=== PATIENT | male | born 1930 | race Caucasian/White ===

== ENCOUNTER → 2016-11-14 | Outpatient (CLI) | payer OTHER | LOC: PCVCCLINIC 14:00 | PROVIDERS: ATTEND Internal Medicine Cardiovascular Disease | DX: E78.5 Hyperlipidemia, unspecified (principal); I25.10 Atherosclerotic heart disease of native coronary artery without angina pectoris; G47.33 Obstructive sleep apnea (adult) (pediatric); J44.9 Chronic obstructive pulmonary disease, unspecified; I48.0 Paroxysmal atrial fibrillation; M54.9 Dorsalgia, unspecified; I65.29 Occlusion and stenosis of unspecified carotid artery; Z95.1 Presence of aortocoronary bypass graft | CPT/HCPCS: 80061; 93005; G0463 ==

== ENCOUNTER → 2017-05-16 | Outpatient (CLI) | payer OTHER | LOC: PCVCCLINIC 14:30 | PROVIDERS: ATTEND Nuclear Medicine Nuclear Cardiology | DX: I73.9 Peripheral vascular disease, unspecified (principal); I25.10 Atherosclerotic heart disease of native coronary artery without angina pectoris; I77.9 Disorder of arteries and arterioles, unspecified; I10 Essential (primary) hypertension; E78.00 Pure hypercholesterolemia, unspecified; I48.0 Paroxysmal atrial fibrillation; J42 Unspecified chronic bronchitis; E11.9 Type 2 diabetes mellitus without complications; Z79.82 Long term (current) use of aspirin; Z79.899 Other long term (current) drug therapy | CPT/HCPCS: G0463 ==

== ENCOUNTER → 2017-05-22 | Outpatient (CLI) | payer OTHER ==
[~2017-05-22] MED LIST: ASPIRIN 325 MG TABLET ONE; CLOPIDOGREL BISULFATE 75 MG TABLET ONE; DIAZEPAM 10 MG TABLET. ONE; HEPARIN SODIUM 5,000 UNIT/ML VIAL for PCVC. ONE; IODIXANOL 270 MG/ML 100 ML VIAL. ONE; IV NORMAL SALINE 1000ML BAG 1,000 ML ONE; IV NORMAL SALINE 500ML BAG 0 ML ONE; LIDOCAINE 1% Multi-Dose 20 ML VIAL. ONE; MIDAZOLAM HCL/PF 2 MG/2 ML VIAL. ONE; fentaNYL PF VIAL 100 MCG/2 ML VIAL ONE; hydrALAZINE 20 MG/ML VIAL. ONE
--- NOTE | 2017-05-22 16:11 | PCVCINTER ---
EXAM: 1. AORTOGRAM AND BILATERAL LOWER EXTREMITY RUNOFF ANGIOGRAM 2. BILATERAL RENAL ANGIOGRAPHY 3. RIGHT COMMON ILIAC ARTERY STENT PLACEMENT. 4. RIGHT EXTERNAL ILIAC ARTERY STENT PLACEMENT 5. LEFT COMMON ILIAC ARTERY STENT PLACEMENT. 6. LEFT EXTERNAL ILIAC ARTERY STENT PLACEMENT. INDICATION: Peripheral arterial disease. Coronary artery disease. Lifestyle limiting claudication. Hypertension. Renal atherosclerosis. PROCEDURE: Procedure and risks of angiography intervention is appropriate including limb loss stroke and were discussed with the patient's family and consent obtained. The patient's left groin was prepped abnormal sterile fashion. IV conscious sedation was used to procedure with appropriate monitoring for 90 minutes. Ultrasound was used to interrogate the left groin and showed the left common femoral artery to be patent. A permanent spot film was obtained. Under ultrasound guidance access into the left common femoral artery was obtained and a 5 [place] sheath was placed. Through this a 5 [place] flush catheter was placed into the abdominal aorta at the level of the renal arteries and AP aortogram was performed. Catheter was positioned at the aortic bifurcation and both oblique views of the pelvis were obtained. Catheter was positioned into the left external iliac artery and left leg runoff angiography was performed. Catheter was exchanged for a visceral catheter was placed into the right renal arteries and right renal angiograms obtained. Catheter was placed into the the left renal arteries and left renal angiograms were obtained. Catheter was advanced to the level of the right external iliac artery and right leg runoff angiography was obtained. Patient was given 4500 units of heparin. A 6 [place] crossover sheath was placed via the left groin to the level of the right common femoral artery. Stent placement across the areas of high-grade stenosis in the right external iliac artery was carried out with a 8 x 80 Smart control stent with subsequent dilatation to 7.0 mm. Stent placement across the areas of high-grade stenosis in the right common iliac artery was carried out with a 8 x 60 Smart control stent and 7 x 39 [place]maz Miriam stent with subsequent dilatation to 8.0 mm. Stent placement across the areas of high-grade stenosis in the left common iliac artery was carried out with a 14 x 40 Smart control stent with subsequent dilatation to 9.0 mm. Stent placement across the areas of high-grade stenosis in the left external iliac artery was carried out with a 8 x 40 Smart control stent with subsequent dilatation to 8.0 mm. Follow-up angiogram was performed. Catheters and wires removed. Sheath was removed and hemostasis obtained using the Exoseal device. No immediate complications. FINDINGS: Aortogram: There is one right and one left renal artery. Moderately advanced calcific plaque in the infrarenal abdominal aorta does not cause significant stenosis. Pelvis: Extensive irregular plaque proximal common iliac artery results in subtotal occlusion. Large exophytic plaques in the lower right common iliac and throughout the right proximal and mid external iliac artery results in areas of high-grade stenosis. Moderate plaque proximal left common iliac artery causes moderate stenosis. Focal 80% stenosis in the lower common iliac artery on the left. Area of dissection high-grade stenosis upper left external iliac artery. Right renal artery: Moderate plaque proximal vessel causes minimal stenosis. No branch vessel stenosis. Left renal artery: Extensive plaque proximal vessel results in 50% stenosis not felt to be flow-limiting. No branch vessel stenosis. Right leg: At the junction of the external and common femoral artery is in 80% stenosis caused by a large plaque. Large exophytic plaque distal common femoral artery results in 95% stenosis. The profunda femoral artery is occluded at its origin. The superficial femoral artery show scattered plaque without high-grade stenosis. Exophytic plaque upper popliteal artery results in 75% stenosis. The anterior tibial, peroneal, and posterior tibial arteries all show good patency. Left leg: The common femoral and profunda femoral arteries are patent. The superficial femoral artery shows mild plaque throughout without significant stenosis. Eccentric plaque at the junction of the superficial femoral artery and popliteal artery results in 75% stenosis. Popliteal artery otherwise patent. The anterior tibial artery becomes diminutive in size distally. The posterior tibial and peroneal arteries show good patency throughout. Right common iliac artery: Following stent placement vessel shows good patency without significant residual stenosis. Right external iliac artery: Following stent placement vessel shows satisfactory patency without significant residual stenosis. Left common iliac artery: Following stent placement vessel shows good patency without significant stenosis. Left external iliac artery stent placement: Following stent placement vessel shows good patency without significant stenosis. IMPRESSION: Subtotal occlusion right common iliac artery and high-grade stenoses in the right external iliac, left common iliac, and left external iliac arteries were treated with stent placements with good patency restored. 75% stenosis in the upper right and left popliteal arteries. Large exophytic plaque results in 80% stenosis at the junction of the right external iliac/right common femoral artery and 95% stenosis in the lower right common femoral artery. Occlusion of the right profunda femoral artery. Patient will have a follow-up appointment with Dr. Jacobson to arrange for right common femoral artery endarterectomy. LOC:[id number]
== END | disposition home or self-care (01) ==
LOC: PCVCINTER 07:26
PROVIDERS: ATTEND Nuclear Medicine Nuclear Cardiology
DX: I70.213 Atherosclerosis of native arteries of extremities with intermittent claudication, bilateral legs (principal); I25.10 Atherosclerotic heart disease of native coronary artery without angina pectoris; I10 Essential (primary) hypertension; I70.1 Atherosclerosis of renal artery
CPT/HCPCS: 36252; 37221; 37223; 75716; 76937; 99152; 99153; C1725; C1751; C1760; C1769; C1876; C1894; J0360; J0690; J1644; J2250; J3010; J7030; Q9966; J7040

== ENCOUNTER → 2017-06-11 | Outpatient (CLI) | payer OTHER ==
--- NOTE | 2017-06-11 13:08 | PCVCIMAG ---
EXAM: NONINVASIVE ARTERIAL EXAMINATION OF BOTH LOWER EXTREMITIES INCLUDING PRE AND POST EXERCISE PRESSURE MEASUREMENTS AND DOPPLER WAVEFORMS INDICATION: Peripheral Arterial Disease. Leg pain. FINDINGS: Right Brachial: 138 mm Hg. Right Dorsalis Pedis: 105 mm Hg. Right Posterior Tibial: 87 mm Hg. Right PERNELL = 0.74. Left Brachial: 141 mm Hg. Left Dorsalis Pedis: 150 mm Hg. Left Posterior Tibial: 156 mm Hg. Left PERNELL = 1.11. Post Exercise: Left Brachial 141 mm Hg. Right Dorsalis Pedis: 75 mm Hg. Left Posterior Tibial: 167 mm Hg. Right PERNELL = 0.53. Left PERNELL = 1.18. IMPRESSION: Mild/moderate resting ischemia in the right lower extremity. Moderate exercise induced ischemia in the right lower extremity. No resting ischemia in the left lower extremity. No exercise induced ischemia in the left lower extremity. LOC:[id number]
== END | disposition home or self-care (01) ==
LOC: PCVCIMAG 10:31
PROVIDERS: ATTEND Internal Medicine Cardiovascular Disease
DX: I99.8 Other disorder of circulatory system (principal); I73.9 Peripheral vascular disease, unspecified; E11.9 Type 2 diabetes mellitus without complications; E78.00 Pure hypercholesterolemia, unspecified
CPT/HCPCS: 93923; 93924

== ENCOUNTER → 2017-07-11 | Outpatient (CLI) | payer OTHER ==
--- NOTE | 2017-07-11 17:50 | PCVCIMAG ---
EXAM: DUPLEX ULTRASOUND OF THE RIGHT GROIN INDICATION: Groin swelling and pain. Prior catheterization May 22, 2017. FINDINGS: No pseudoaneurysm is present. The common femoral artery and vein are patent. No arteriovenous fistula is seen. IMPRESSION: Study is negative for pseudoaneurysm. Note is made of a 2.2 x 4.4 x 5.1 cm subcutaneous hematoma and a second 2.4 x 3.1 x 4.8 cm subcutaneous hematoma in the right groin. Both of these are predominantly cystic in nature. LOC:[id number]
== END | disposition home or self-care (01) ==
LOC: PCVCIMAG 13:17
PROVIDERS: ATTEND Nuclear Medicine Nuclear Cardiology
DX: R19.09 Other intra-abdominal and pelvic swelling, mass and lump (principal); I10 Essential (primary) hypertension; I25.10 Atherosclerotic heart disease of native coronary artery without angina pectoris; E78.00 Pure hypercholesterolemia, unspecified; Z98.890 Other specified postprocedural states
CPT/HCPCS: 93926

== ENCOUNTER → 2017-08-28 | Outpatient (CLI) | payer OTHER ==
--- NOTE | 2017-08-28 11:40 | PCVCIMAG ---
EXAM: BILATERAL CAROTID DUPLEX INDICATION: Carotid Occlusive Disease. FINDINGS: Doppler Measurements (centimeters per second): RIGHT: Peak CCA-59, Peak ECA-72, Diastolic ICA-19, Peak ICA-103, ICA/CCA Ratio-1.7. LEFT: Peak CCA-79, Peak ECA-131, Diastolic ICA-15, Peak ICA-84, ICA/CCA Ratio-1.1. RIGHT CAROTID: The carotid bulb has moderate plaque. The proximal internal carotid artery shows <40% stenosis. The common carotid artery shows no significant stenosis. The external carotid artery shows no significant stenosis. LEFT CAROTID: The carotid bulb has moderate plaque. The proximal internal carotid artery shows <40% stenosis. The common carotid artery shows no significant stenosis. The external carotid artery shows 40% stenosis. Antegrade flow in both vertebral arteries. IMPRESSION: <40% stenosis of the right internal carotid artery with moderate plaque. <40% stenosis of the left internal carotid artery with moderate plaque. LOC:[id number]
--- NOTE | 2017-08-28 11:42 | PCVCIMAG ---
EXAM: NONINVASIVE ARTERIAL EXAMINATION OF BOTH LOWER EXTREMITIES INCLUDING PRE AND POST EXERCISE PRESSURE MEASUREMENTS AND DOPPLER WAVEFORMS INDICATION: Peripheral Arterial Disease. Leg pain. FINDINGS: Right Brachial: 137 mm Hg. Right Dorsalis Pedis: 149 mm Hg. Right Posterior Tibial: 206 mm Hg. Right PERNELL = 1.03. Left Brachial: 145 mm Hg. Left Dorsalis Pedis: 144 mm Hg. Left Posterior Tibial: 151 mm Hg. Left PERNELL = 1.04. Post Exercise: Left Brachial 170 mm Hg. Right Posterior Tibial: 155 mm Hg. Left Posterior Tibial: 170 mm Hg. Right PERNELL = 0.91. Left PERNELL = 1.00. IMPRESSION: No resting ischemia in the right lower extremity. No exercise induced ischemia in the right lower extremity. No resting ischemia in the left lower extremity. No exercise induced ischemia in the left lower extremity. LOC:[id number]
--- NOTE | 2017-08-28 11:47 | PCVCIMAG ---
EXAM: AORTOILIAC DUPLEX INDICATION: Peripheral arterial disease FINDINGS: AORTA: Suprarenal aorta measures maximum diameter of 2.6 cm. There is not a fusiform infrarenal aortic aneurysm. The infrarenal aorta measures maximum diameter of 2.5 cm. No aortic stenosis. RIGHT COMMON ILIAC ARTERY: Maximum diameter is 0.9 cm. No significant stenosis. RIGHT EXTERNAL ILIAC ARTERY: No significant stenosis. LEFT COMMON ILIAC ARTERY: Maximum diameter is 1.0 cm. 50-60% LEFT EXTERNAL ILIAC ARTERY: No significant stenosis. IMPRESSION: No abdominal aortic aneurysm. No right iliac stenosis seen. 50-60% stenosis left common iliac artery not felt to be flow-limiting. LOC:[id number]
== END | disposition home or self-care (01) ==
LOC: PCVCIMAG 09:31
PROVIDERS: ATTEND Nuclear Medicine Nuclear Cardiology
DX: I65.23 Occlusion and stenosis of bilateral carotid arteries (principal); I70.202 Unspecified atherosclerosis of native arteries of extremities, left leg; I25.10 Atherosclerotic heart disease of native coronary artery without angina pectoris; I10 Essential (primary) hypertension; E78.00 Pure hypercholesterolemia, unspecified; E11.9 Type 2 diabetes mellitus without complications; I48.0 Paroxysmal atrial fibrillation; Z95.828 Presence of other vascular implants and grafts; Z79.82 Long term (current) use of aspirin
CPT/HCPCS: 93880; 93923; 93978; 93924

== ENCOUNTER → 2017-08-30 | Outpatient (CLI) | payer OTHER | END | disposition home or self-care (01) | LOC: PCVCCLINIC 15:10 | PROVIDERS: ATTEND Nuclear Medicine Nuclear Cardiology | DX: I25.10 Atherosclerotic heart disease of native coronary artery without angina pectoris (principal); I73.9 Peripheral vascular disease, unspecified; I77.9 Disorder of arteries and arterioles, unspecified; I10 Essential (primary) hypertension; I48.0 Paroxysmal atrial fibrillation; E78.00 Pure hypercholesterolemia, unspecified; E11.9 Type 2 diabetes mellitus without complications; Z87.891 Personal history of nicotine dependence; Z79.82 Long term (current) use of aspirin; Z79.899 Other long term (current) drug therapy | CPT/HCPCS: G0463 ==

== ENCOUNTER → 2018-07-29 | Outpatient (CLI) | payer OTHER ==
--- NOTE | 2018-07-29 17:25 | PCVCIMAG ---
EXAM: AORTOILIAC DUPLEX INDICATION: Peripheral arterial disease FINDINGS: AORTA: Suprarenal aorta measures maximum diameter of 2.8 cm. There is not a fusiform infrarenal aortic aneurysm. The infrarenal aorta measures maximum diameter of 2.4 cm. No aortic stenosis. RIGHT COMMON ILIAC ARTERY: Maximum diameter is 1.0 cm. No significant stenosis. RIGHT EXTERNAL ILIAC ARTERY: No significant stenosis. LEFT COMMON ILIAC ARTERY: Maximum diameter is 1.0 cm. Mild stenosis. LEFT EXTERNAL ILIAC ARTERY: No significant stenosis. IMPRESSION: No abdominal aortic aneurysm. No flow-limiting aortoiliac stenosis seen. LOC:[id number]
--- NOTE | 2018-07-29 17:27 | PCVCIMAG ---
EXAM: NONINVASIVE ARTERIAL EXAMINATION OF BOTH LOWER EXTREMITIES INCLUDING PRE AND POST EXERCISE PRESSURE MEASUREMENTS AND DOPPLER WAVEFORMS INDICATION: Peripheral Arterial Disease. Leg pain. FINDINGS: Right Brachial: 146 mm Hg. Right Dorsalis Pedis: 139 mm Hg. Right Posterior Tibial: 139 mm Hg. Right PERNELL = 0.95. Left Brachial: 142 mm Hg. Left Dorsalis Pedis: 178 mm Hg. Left Posterior Tibial: 156 mm Hg. Left PERNELL = 1.22. Post Exercise: Right Brachial 152 mm Hg. Right Posterior Tibial: 135 mm Hg. Left Dorsalis Pedis: 170 mm Hg. Right PERNELL = 0.89. Left PERNELL = 1.12. IMPRESSION: No resting ischemia in the right lower extremity. No exercise induced ischemia in the right lower extremity. No resting ischemia in the left lower extremity. No exercise induced ischemia in the left lower extremity. LOC:[id number]
== END | disposition home or self-care (01) ==
LOC: PCVCIMAG 12:48
PROVIDERS: ATTEND Nuclear Medicine Nuclear Cardiology
DX: E11.51 Type 2 diabetes mellitus with diabetic peripheral angiopathy without gangrene (principal)
CPT/HCPCS: 93923; 93978; 93924

== ENCOUNTER → 2018-07-31 | Outpatient (CLI) | payer OTHER ==
[~2018-07-31] MED LIST changes: -ASPIRIN 325 MG TABLET ONE; -CLOPIDOGREL BISULFATE 75 MG TABLET ONE; -DIAZEPAM 10 MG TABLET. ONE; -HEPARIN SODIUM 5,000 UNIT/ML VIAL for PCVC. ONE; -IODIXANOL 270 MG/ML 100 ML VIAL. ONE; -IV NORMAL SALINE 1000ML BAG 1,000 ML ONE; -IV NORMAL SALINE 500ML BAG 0 ML ONE; -LIDOCAINE 1% Multi-Dose 20 ML VIAL. ONE; -MIDAZOLAM HCL/PF 2 MG/2 ML VIAL. ONE; +REGADENOSON 0.4 MG/5 ML DISP.SYRIN. IV ONE; -fentaNYL PF VIAL 100 MCG/2 ML VIAL ONE; -hydrALAZINE 20 MG/ML VIAL. ONE
--- NOTE | 2018-07-31 12:51 | PCVCIMAG ---
APPROVED REPORT Study performed: 07/31/2018 07:48:53 EXAM: Comprehensive 2D, Doppler, and color-flow Echocardiogram Patient Location: Echo lab Room #: 2 BSA: 1.74 HR: 61 bpmBP: 144/58 mmHg Rhythm: NSR Other Information Study Quality: Adequate Risk Factors: Cardiac Risk Factors: Hyperlipidemia Indications Atrial Fibrillation Chest Pain 2D Dimensions IVSd: 7.77 (7-11mm)LVOT Diam: 18.97 (18-24mm) LVDd: 44.06 mm PWd: 10.19 (7-11mm)Ascending Ao: 37.50 (22-36mm) LVDs: 31.38 (25-40mm) Left Atrium: 30.13 (27-40mm) Aortic Root: 25.01 mm LV Single Plane 4CH: 53.88 % LV Single Plane 2CH: 63.22 %Xiong's LVEF: 54.00 % Biplane EF: 56.0 % Volumes Left Atrial Volume (Systole) Single Plane 4CH: 70.02 mLSingle Plane 2CH: 46.67 mL Biplane LA Volume: 58.00 mLLA ESV Index: 33.00 mL/m2 Aortic Valve AoV Peak Brian.: 2.00 m/s AO Peak Gr.: 15.59 mmHgLVOT Max P.61 mmHg AO Mean Gr.: 8.21 mmHgLVOT Mean P.32 mmHg AO V2 Mean: 1.34 m/sLVOT Max V: 0.98 m/s AO V2 VTI: 47.06 cmLVOT Mean V: 0.72 m/s LAURENT (VTI): 1.46 [id number] V1 VTI: 24.28 cm LAURENT Vmax: 1.38 cm2 SV (LVOT): 68.60 mL Mitral Valve MV Peak Gr.: 6.71 mmHg MV Mean Gr.: 2.37 mmHgE/A Ratio: 0.9 MV Decel. Time: 242.19 ms MV E Max Brian.: 0.90 m/s MV A Brian.: 1.03 m/s MV Max Brian.: 1.30 m/s MV Mean Brian.: 0.71 m/s MV VTI: 417.72 mm MVA VTI: 164.24 mm2 MV PHT: 93.94 ms MVA (PHT): 2.34 cm2 IVRT: 110.73 ms Pulmonary Valve PV Peak Brian.: 1.29 m/sPV Peak Gr.: 6.68 mmHg Pulmonary Vein P Vein S: 0.59 m/sP Vein A: 0.40 m/s P Vein D: 0.33 m/sP Vein A Dur.: 90.0 msec P Vein S/D Ratio: 1.79 Tricuspid Valve TR Peak Brian.: 2.16 m/s TR Peak Gr.: 18.58 mmHg TV Vmax: 0.72 m/sPA Pressure: 26.00 mmHg Left Ventricle The left ventricle is normal size. There is normal LV segmental wall motion. There is normal left ventricular wall thickness. Left ventricular systolic function is normal. The left ventricular ejection fraction is within the normal range. LVEF is 55-60%. The left ventricular diastolic function is normal. Right Ventricle The right ventricle is normal size. The right ventricular systolic function is normal. Atria The left atrium size is normal. The right atrium size is normal. Aortic Valve Aortic valve is trileaflet. Moderate aortic valve sclerosis. No aortic regurgitation is present. Mild to moderate aortic stenosis. Highest mean aortic valve gradient is 8.2_mmHg. Peak aortic valve gradient is 16_mmHg. Calculated LAURENT by the continuity equation is 1.5 cm2. Mitral Valve Mild mitral annular calcification. Mitral valve leaflets are mildly sclerotic. There is no mitral valve regurgitation noted. No evidence of mitral valve stenosis. Tricuspid Valve The tricuspid valve is normal in structure. Trace tricuspid regurgitation with a PA pressure of 26 mmHg. No apparent pulmonary hypertension. Pulmonic Valve The pulmonary valve is normal in structure. Trace pulmonic regurgitation. Great Vessels The aortic root is normal in size. Ascending aorta is not well visualized Aortic arch is normal in caliber.. IVC is normal in size and collapses >50% with inspiration. Pericardium There is no pericardial effusion. There is no pleural effusion. <Conclusion> The left ventricle is normal size. LVEF is 55-60%. The left ventricular diastolic function is normal. The right ventricle is normal size. The left atrium size is normal. Aortic valve is trileaflet. Moderate aortic valve sclerosis. Mild to moderate aortic stenosis. Highest mean aortic valve gradient is 8.2_mmHg. Peak aortic valve gradient is 16_mmHg. Calculated LAURENT by the continuity equation is 1.5 cm2. Mild mitral annular calcification. Mitral valve leaflets are mildly sclerotic. There is no mitral valve regurgitation noted. Trace tricuspid regurgitation with a PA pressure of 26 mmHg. No apparent pulmonary hypertension. The aortic root is normal in size. There is no pericardial effusion.
--- NOTE | 2018-07-31 12:52 | PCVCIMAG ---
APPROVED REPORT Imaging Protocol: Rest Tc-99m/Stress Tc-99m 1 day Study performed: 07/31/2018 09:31:59 Indication: CAD , Paroxysmal Atrial Fibrillation, Chest pain, Dyspnea Patient Location: Out-Patient Stress Nurse: Yasmin Bruce RN VT Tech:[id number] Shepard Ht: 5 ft 6 in Wt: 145 lbs BSA: 1.74 m2 HR: 60 bpm BP: 198/88 mmHg BMI: 23.4 Rhythm: NSR Medical History Medications: Albuterol, Amlodipine, Atorvastatin, Torsemide, Isosorbide, Pantoprazole, KDur, Janumet Allergies: Amiodarone, Buprion, Methadone, Oxycodone Cardiac Risk Factors: Age, Hyperlipidemia, DM, Tobacco History (Former), CAD, COPD, PVD, Afib Previous Cardiac Procedures: CABG 2015 Pretest Chest Pain Characteristics: No chest pain Exercise History: Sedentary Physical Disabilities: Back Meds Held (24 hrs): Isosorbide Resting Data Rest SPECT myocardial perfusion imaging was performed in supine position 45 minutes following the intravenous injection of 11.1 mCi of Tc-99m Sestamibi. Time of rest injection: 0845 Date: 07/31/2018 Administration Route: IV Administration Site: Right AC Pharmacologic Stress Pharmacologic stress test was performed by injecting Regadenoson 0.4 mg IV push over 10-15 seconds immediately followed by the intravenous injection of 31.1 mCi of Tc-99m Sestamibi. Time of stress injection: 1000 Date: 07/31/2018 Administration Route: IV Administration Site: Right AC Gated Stress SPECT was performed 45 minutes after stress injection. The images were gated to evaluate regional wall motion and calculate left ventricular ejection fraction. Comments PRIOR NUC 05/2016: NONISCHEMIC Stress Test Details Stress Test: Pharmacologic stress testing performed using 0.4 mg of regadenoson per 5 mL given IV over 10 seconds. Reason for pharmacologic stress test: Spinal Stenosis. HRMax Heart Rate (APMHR): 134 bpm Resting HR: 60 bpmTarget HR (85% APMHR): 113 bpm Max HR Achieved: 89 bpm % of APMHR: 66 Recovery HR: 74 bpm BP Resting BP: 198/88 mmHg Recovery BP: 171/70 mmHg ECG Resting ECG: Sinus Rhythm Stress ECG: Sinus Rhythm Arrhythmia: None Recovery ECG: Sinus Rhythm Clinical Reason for Termination: Completed protocol Stress Symptoms: Abdominal discomfort Exercise duration: 0 min 55 sec Symptoms resolved with caffeine. Stress ECG Conclusion ECG: Non-ischemic Study Quality Study: Good Study Data Post stress, the left ventricular ejection was 61%.. SSS: 0 SRS: 2 SDS: 0 TID = 0.89. Perfusion No evidence of stress induced ischemia or prior myocardial infarction. Wall Motion Normal left ventricular size and function with no regional wall motion abnormalities. Nuclear Conclusion No evidence of stress induced ischemia or prior myocardial infarction. Normal left ventricular size and function with no regional wall motion abnormalities. Post stress, the left ventricular ejection was 61%. No change since prior study dated May 2016. Interpreted by: Jairo Montoya MD Electronically Approved: 07/31/2018 12:33:53 <Conclusion> ECG: Non-ischemic
== END | disposition home or self-care (01) ==
LOC: PCVCIMAG 10:42
PROVIDERS: ATTEND Internal Medicine Cardiovascular Disease
DX: I25.10 Atherosclerotic heart disease of native coronary artery without angina pectoris (principal); G47.33 Obstructive sleep apnea (adult) (pediatric); I48.0 Paroxysmal atrial fibrillation; R06.09 Other forms of dyspnea; E78.5 Hyperlipidemia, unspecified
CPT/HCPCS: 78452; 93017; 93306; A9500; J2785

== ENCOUNTER → 2019-02-09 | Outpatient (CLI) | payer OTHER | END | disposition home or self-care (01) | LOC: PCVCCLINIC 15:02 | PROVIDERS: ATTEND Internal Medicine Cardiovascular Disease | DX: I25.810 Atherosclerosis of coronary artery bypass graft(s) without angina pectoris (principal); I65.23 Occlusion and stenosis of bilateral carotid arteries; E11.9 Type 2 diabetes mellitus without complications; I10 Essential (primary) hypertension; J42 Unspecified chronic bronchitis; E78.00 Pure hypercholesterolemia, unspecified; I48.0 Paroxysmal atrial fibrillation; Z90.49 Acquired absence of other specified parts of digestive tract; Z87.891 Personal history of nicotine dependence; Z88.5 Allergy status to narcotic agent; Z88.8 Allergy status to other drugs, medicaments and biological substances; Z79.84 Long term (current) use of oral hypoglycemic drugs | CPT/HCPCS: 93005; G0463 ==

== ENCOUNTER → 2019-06-11 | Outpatient (CLI) | payer OTHER | END | disposition home or self-care (01) | LOC: PCVCCLINIC 04:50 | PROVIDERS: ATTEND Internal Medicine Cardiovascular Disease | DX: I25.10 Atherosclerotic heart disease of native coronary artery without angina pectoris (principal); I10 Essential (primary) hypertension; E78.00 Pure hypercholesterolemia, unspecified; I65.23 Occlusion and stenosis of bilateral carotid arteries; E11.9 Type 2 diabetes mellitus without complications; I73.9 Peripheral vascular disease, unspecified; E78.5 Hyperlipidemia, unspecified; Z88.8 Allergy status to other drugs, medicaments and biological substances | CPT/HCPCS: 36415; 80061; 93005; G0463 ==

== ENCOUNTER → 2019-06-11 | Outpatient (CLI) | payer OTHER | END | disposition home or self-care (01) | LOC: PCVCCLINIC 14:40 | PROVIDERS: ATTEND Internal Medicine Cardiovascular Disease | DX: I25.10 Atherosclerotic heart disease of native coronary artery without angina pectoris (principal); I10 Essential (primary) hypertension; E78.00 Pure hypercholesterolemia, unspecified; I65.23 Occlusion and stenosis of bilateral carotid arteries; E11.9 Type 2 diabetes mellitus without complications; I73.9 Peripheral vascular disease, unspecified | CPT/HCPCS: 36415; 80061; 93005; G0463 ==